=== PATIENT | male | born 1935 | race Caucasian/White ===

== ENCOUNTER 2017-10-27 10:33 | Day surgery (SDC) | payer OTHER, SELFPAY ==
[2017-10-21 10:16] VITALS: BMI 30.7
[2017-10-27 10:58] VITALS: BP 198/72; PULSE 72; RESP 16; TEMP 36.7; O2SAT 95; BMI 30.7
[2017-10-27] MEDS: LACTATED RINGERS 1,000 ML 42 ML IV ×2 (11:05→12:45)
--- NOTE | 2017-10-27 11:15 | PM.PREOP ---
Pre-operative Note Interval Note Pre-op Check: History & Physical Reviewed by Physician and Exam Performed
[2017-10-27] MEDS: CEFAZOLIN 2 GM/100 ML FROZ.PIGGY IV (11:17)
[2017-10-27] MEDS: BUPIVACAINE 0.25% (PF) 8 ML, fentaNYL 100 MCG INJ (11:56)
[2017-10-27] MEDS: THROMBIN (BOVINE) 5,000 UNIT VIAL 5000 UNIT TOP (11:56)
[2017-10-27] MEDS: VANCOMYCIN 1,000 MG VIAL 1000 MG TOP (11:56)
[2017-10-27] MEDS: SODIUM CHLORIDE 0.9% 1,000 ML, GENTAMICIN 80 MG IRR (11:57)
--- NOTE | 2017-10-27 11:58 | SUR.OPER ---
Prone on spine table, head in foam head support, padded chest and pelvic supports, gel pad at knees, lower legs supported by pillows; nipples, genitalia and toes free of pressure, arms secured on foam padded arm boards at <90 degrees abduction. Tape over blanket at thigh secured to table.
--- NOTE | 2017-10-27 12:41 | PM.OP.1 ---
Operative Date/Time/Diagnoses - Date of procedure: 10/27/17 Time of procedure: 12:41 Pre-op diagnosis: Lumbar stenosis with radiculopathy Lumbar disc herniation Post-op diagnosis: same Procedure & Clinicians Procedure: L2-3 laminectomy and right-sided diskectomy Same procedure as scheduled: Yes Indications: 82-year-old male with intractable right leg radiculopathy. He had failed conservative management requested operative intervention. Risks and benefits of surgery discussed and appropriate consent obtained. Surgeon: Ever Ramos [employer]sembl[employer]: Leandra Carrillo Anesthesia Type: General Operative Notes Findings: None Closure Type: primary Specimen(s): none sent Estimated Blood Loss (mL): 20 Procedure in detail: Patient was brought to the operating room and intubated on the table. They were rolled over on the well-padded prone position on the [place] table. A time-out was performed. Preoperative antibiotics were given. The back was prepped and draped in standard sterile fashion. Using fluoroscopy for localization, a 3 cm incision was made in the midline. We used Bovie to dissect through the lumbodorsal fascia and then subperiosteally dissect the paraspinal muscles off the well-marked right side. A marker was placed and x-ray was taken to confirm positioning. We then brought in the microscope. A right-sided laminectomy was performed at L2-3. We carefully depressed the dura and reached across the midline to decompress the opposite side as he had moderate central stenosis as well as his disc herniation. The neural foramen were cleared out. At the end, we could reach with the ball probe cephalad and caudally across the midline and to the foramen and everything was opened. We then carefully retracted the dura medially and expose the disc. This was cleared off with bipolar. A scalpel used to perform an annulotomy. The disc was actually partially calcified over and was quite difficult to pass the scalpel through we were able to get this open. The pituitaries used to perform a diskectomy. We carefully swept the ball probe through the disc to make sure there were no more loose fragments. At the end there is no more pressure from the disc and the central canal was widely decompressed from the laminectomy. The wound was irrigated. An epidural catheter was prepared with 8 mL of 0.25% Marcaine and 100 mcg of fentanyl. The dura was carefully depressed and the catheter was advanced 6 cm cephalad underneath remaining lamina without resistance. The fascia was then closed in layers. The epidural catheter was injected without complications. Vancomycin powder was placed in the wound. The superficial and the skin were closed. Sterile dressing was placed. Patient was rolled over extubated brought to recovery room with no complications. Complications: none Condition: stable Disposition: PACU Plan for aftercare: Outpatient.
[2017-10-27 12:45] VITALS: BP 141/54; PULSE 76; RESP 17; TEMP 36.7; O2SAT 100
[2017-10-27 12:50] VITALS: BP 126/58; PULSE 101; RESP 18; O2SAT 97
[2017-10-27 12:55] VITALS: BP 107/67; PULSE 96; RESP 17; O2SAT 96
[2017-10-27 13:10] VITALS: BP 124/64; PULSE 90; RESP 17; TEMP 36.8; O2SAT 97
[2017-10-27 14:27] VITALS: BP 162/71; PULSE 76; RESP 16; TEMP 36.6; O2SAT 96
--- NOTE | 2017-10-27 14:35 | SUR.PHASEII ---
Pt. able to get self up to edge of bed with two staff members on each side, ready to assist when pt. stands and ambulates. Pt's gait was steady, denied dizziness, denied increased weakness to either leg; pt. even balanced on one leg and then the other. Pt. ready for d/c home.
== END 2017-10-27 14:35 | disposition home or self-care (01) ==
PROVIDERS: Visit Provider Orthopaedic Surgery
PROC: (CPT 63030; principal; 2017-10-27 10:45)
DX: M51.16 Intervertebral disc disorders with radiculopathy, lumbar region (principal); E03.9 Hypothyroidism, unspecified; E78.5 Hyperlipidemia, unspecified
CPT/HCPCS: 63030; J0330; J0690; J1100; J2250; J2405; J2704; J3010